=== PATIENT | male | born 1955 | race Caucasian/White ===

== ENCOUNTER 2016-08-14 18:38 | Emergency (ER) | payer OTHER ==
[~2016-08-14] VITALS: Ht 177.8 cm; Wt 93.0 kg
[~2016-08-14 18:38] MED LIST: ALEVE220 MG PO; ANTIVERT 12.512.5 MG PO; ANTIVERT 25 MG25 MG PO
[2016-08-14 18:56] VITALS: BP 126/84
--- NOTE | 2016-08-14 19:55 | RADIOLOGY REPORT ---
EXAMINATION: XR FOOT, RIGHT XR FOOT, LEFT CLINICAL INFORMATION: Beam fell on feet. COMPARISON: None. TECHNIQUE: 3 views of each foot FINDINGS: Right foot: There is a displaced fracture of the first digit proximal phalanx. There is a transverse component through the shaft with intra-articular extension to the interphalangeal joint. Additionally, there is an intra-articular fracture along the lateral base of the first digit distal phalanx. There are fractures of the jordana of the second and third digits. There is associated soft tissue swelling with the fracture sites. No ankle joint effusion. Left foot: There is a fracture of the tuft of the first digit distal phalanx. No additional fractures are seen. Soft tissue swelling of the first digit. Small osteophytes at the first metatarsophalangeal joint. IMPRESSION: 1. Displaced fracture of the first digit proximal phalanx with intra-articular extension. Additional intra-articular fracture at the lateral base of the first digit distal phalanx. Second and third digit is still phalanx tuft fractures. 2. Fracture of the tuft of the left foot first digit distal phalanx.
--- NOTE | 2016-08-14 20:23 | ED ANKLE/FOOT INJURY COMPLAINT ---
History of Present Illness General Chief Complaint: Foot or Ankle Injury Stated Complaint: BILATRAL TOES CRUSHING INJURY AT WORK Source: patient, family, old records Exam Limitations: no limitations Vital Signs & Intake/Output Vital Signs & Intake/Output Vital Signs Date Time Temp Pulse Resp B/P Pulse O2 O2 Flow FiO2 Ox Delivery Rate 08/14 1856 98.2 93 20 126/84 97 Room Air Room Air Allergies Coded Allergies: NO KNOWN ALLERGIES (12/07/11) Reconcile Medications Meclizine (Meclizine HCl) 25 MG TABLET 1 TAB PO TID PRN DIZZINESS Naproxen Sodium (Aleve) 220 MG TABLET 1 TAB PO PRN PAIN (Reported) Oxycodone HCl/Acetaminophen (Percocet 5-325 MG Tablet) 5 MG-325 MG TABLET 1 TAB PO BID PRN PAIN Triage Note: PT TO ED S/P I BEAM/ STEEL BEAM FELL ONTO BILATERAL FEET AT WORK AROUND 3PM TODAY. WENT HOME TRIED ICE, TOOK TYLENOL. Triage Nurses Notes Reviewed? yes Occurred: this afternoon Duration: hour(s): (5), constant Timing: single episode today Severity: moderate Severity Numbers: 5 Pain/Injury Location: Bilateral: Foot. Method of Injury: direct blow No Modifying Factors: none Associated Symptoms: swelling HPI: 61-year-old male presents to emergency room with his for evaluation after a steel been rolled over onto both of his feet while at work earlier this afternoon around 3 PM. He now presents complaining of [id number] aching pain throbbing and intermittently pulsating in his toes. The patient states that he went home after work took a Tylenol which improved the pain and states he only reason he came is because his made him today. He denies any difficulty with weightbearing there was no other injury, he denies any proximal foot or ankle pain no numbness or tingling to his toes. He is not on any blood thinners (MANJINDER DONIS,ANAND) Past History Travel History Traveled to [place] past 21 day No Medical History Any Pertinent Medical History? 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 No (ANAND PRINCE) Review of Systems Review of Systems Constitutional: Reports: see HPI. All Other Systems: Reviewed and Negative Comments Review of systems: See HPI, All other systems negative. Constitutional, no chills no fever, no malaise HEENT: No visual changes no sore throat no congestion Cardiovascular: No chest pain , no palpitation Skin, no rashes, no change in skin Respiratory: No dyspnea no cough no sputum GI: No nausea no vomiting, no diarrhea, : No dysuria Muscle skeletal: joint pain, no joint swelling, no back pain, no neck pain, Neurologic: No numbness, no headache Psych: No stress Heme/endocrine: No bruising no bleeding Immunology: No lymphadenopathy (ANAND PRINCE) Physical Exam Physical Exam General Appearance: well developed/nourished, no apparent distress, alert, awake Leg/Knee/Thigh Left: normal range of motion Comments: Well-developed well-nourished patient in no apparent distress. HEENT: Atraumatic, extraocular motion intact Neck: Supple, FROM Back: FROM Cardiovascular: Regular rate and rhythms no murmurs Respiratory: No respiratory distress. Patient speaking in full complete sentences. Breath sounds clear to auscultation bilaterally: NO W/R/R Upper Extremities: full range of motion Hip/Pelvis: Atraumatic/Stable. FROM. No pain with pelvic compression Knee: Atraumatic/stable. FROM. No joint swelling, no effusion. No laxity. No pain with ROM Leg: Atraumatic. Nontender. No edema, 5 out of 5 strength in the lower extremity, normal dorsiflexion of great toe bilaterally, gross sensation is intact. Ankle/Foot: The left foot first toe has tenderness to palpation over the distal aspect, mild subungual hematoma, there is no lacerations the skin is intact. Sensation noted to the toe the rest of the toes on left foot are atraumatic, the right foot has mild to moderate swelling over the right first toe and second toe , with surrounding ecchymosis tenderness to palpation, the ankles atraumatic, there is full sensation Refill is within normal limits to all toes on both feet Skin intact. FROM. No swelling to the ankle, no effusion. No laxity on exam Pulses: Normal/equal DP/PT pulses bilaterally. Brisk cap refill Neuro: Alert and oriented x3 Skin: Warm & dry;No appreciable rash on exposed skin Psych: Mood affect normal, normal memory normal judgment. (MANJINDER DONIS,ANAND) Progress Differential Diagnosis: fracture, dislocation, sprain, contusion, compartmental syndrome Plan of Care: CASE D/W DR MARSHALL WHO SPOKE WITH DR MELVIN WHO ADVISED PT WILL REQUIRE SURGERY, PNEUMATIC BOOT ON R FOOT AND F/U TOMORROW AM I discussed the patient and his his x-ray results and need for surgery and close follow-up with orthopedist, the left first big toe was thoroughly irrigated with normal saline Betadine and a sterile dressing was applied, I discussed with her need for close follow-up with orthopedist tomorrow, patient states that he would like to follow-up with his own orthopedic physician in [place], a copy of the CD and reports were provided to them pneumatic boot was applied by me neurovascularly intact prior to and after application of splint and advised to return anytime sooner with any concerns answered all their questions they feel comfortable plan Diagnostic Imaging: Viewed by Me: Radiology Read. Discussed w/RAD: Radiology Read. Radiology Impression: PATIENT: YANICK BOLAÑOS PRESENT AGE: 61 PATIENT ACCOUNT NO: [id number] : 56 LOCATION: [facility] ORDERING PHYSICIAN: ELEAZAR MARSHALL DO (TBS) SERVICE DATE: 08/14/16 EXAM TYPE: RAD - XRY-FOOT COMPLETE, LEFT; XRY-FOOT COMPLETE, R EXAMINATION: XR FOOT, RIGHT XR FOOT, LEFT CLINICAL INFORMATION: Beam fell on feet. COMPARISON: None. TECHNIQUE: 3 views of each foot FINDINGS: Right foot: There is a displaced fracture of the first digit proximal phalanx. There is a transverse component through the shaft with intra-articular extension to the interphalangeal joint. Additionally, there is an intra-articular fracture along the lateral base of the first digit distal phalanx. There are fractures of the jordana of the second and third digits. There is associated soft tissue swelling with the fracture sites. No ankle joint effusion. Left foot: There is a fracture of the tuft of the first digit distal phalanx. No additional fractures are seen. Soft tissue swelling of the first digit. Small osteophytes at the first metatarsophalangeal joint. IMPRESSION: 1. Displaced fracture of the first digit proximal phalanx with intra -articular extension. Additional intra-articular fracture at the lateral base of the first digit distal phalanx. Second and third digit is still phalanx tuft fractures. 2. Fracture of the tuft of the left foot first digit distal phalanx. DICTATED BY: MENDEZ CURTIS MD DATE/TIME DICTATED:08/14/161947 GREEN END WORKER:TANG DATE/TIME TRANSCRIBED:08/14/161947 CONFIDENTIAL, DO NOT COPY WITHOUT APPROPRIATE AUTHORIZATION. <Electronically signed in Other Vendor System> SIGNED BY: KIRSTEN KELLOGG,MENDEZ 08/14/161954 (ANAND PRINCE) Departure Departure Time of Disposition: 2041 Disposition: HOME OR SELF CARE Condition: Stable Clinical Impression Primary Impression: Toe fracture Referrals: UNKNOWN (PCP/Family) JOSÉ MIGUEL MELVIN MD Additional Instructions: Follow-up with your orthopedist or orthopedic doctor affiliated with [facility] tomorrow. Wear pneumatic boot at all times. Percocet for breakthrough pain if needed rest ice return with any concerns. Departure Forms: Customer Survey Employee Industrial Accident General Discharge Information Prescriptions: Current Visit Scripts Oxycodone HCl/Acetaminophen (Percocet 5-325 MG Tablet) 1 TAB PO BID PRN PAIN #15 TAB (ANAND PRINCE) PA/DOCUMENT CONTROL CLERK Co-Sign Statement Statement: ED Attending supervision documentation- [X] I saw and evaluated the patient. I have also reviewed all the pertinent lab results and diagnostic results. I agree with the findings and the plan of care as documented in the PA's/DOCUMENT CONTROL CLERK's documentation. [] I have reviewed the ED Record and agree with the PA's/DOCUMENT CONTROL CLERK's documentation. [] Additions or exceptions (if any) to the PAs/DOCUMENT CONTROL CLERK's note and plan are summarized below: [] (ELEAZAR MARSHALL DO) Procedures Splinting Location: [facility] Manual Alignment Performed: No Pre-Made Type: velcro Splint: posterior walking Splint Applied By: splint applied by me Pre-Proc Neuro Vasc Exam: normal Post-Proc Neuro Vasc Exam: normal (ANAND PRINCE)
[2016-08-14] MEDS ORDERED: PERCOCET 5-3251 EACH PO (20:43)
== END 2016-08-14 21:01 ==
LOC: ERH 18:38
DX: S92.411A Displaced fracture of proximal phalanx of right great toe, initial encounter for closed fracture (principal); S92.501A Displaced unspecified fracture of right lesser toe(s), initial encounter for closed fracture; S92.412A Displaced fracture of proximal phalanx of left great toe, initial encounter for closed fracture; W23.0XXA Caught, crushed, jammed, or pinched between moving objects, initial encounter
CPT/HCPCS: 73630-50; 73630-LT; 73630-RT